=== PATIENT | female | born 1995 | race Caucasian/White ===

== ENCOUNTER 2017-06-09 12:43 | Emergency (ER) | payer BC, OTHER ==
[~2017-06-09] VITALS: Ht 157.5 cm; Wt 63.5 kg
[~2017-06-09 12:43] MED LIST: ALBUPOW26
[2017-06-09 12:49] VITALS: BP 115/73
[2017-06-09] MEDS ORDERED: BACITRACIN TOP OINT 1 UD PKG TOP ONE (13:15)
[2017-06-09] MEDS ORDERED: TETANUS-DIPTH-ACEL PERTUSSIS 0.5ML SYRG IM ONE (13:15)
== END 2017-06-09 14:00 | disposition home or self-care (01) ==
LOC: ER 12:43
DX: S92.912A Unspecified fracture of left toe(s), initial encounter for closed fracture (principal); Z88.0 Allergy status to penicillin; Z88.1 Allergy status to other antibiotic agents; Z23 Encounter for immunization; Z77.22 Contact with and (suspected) exposure to environmental tobacco smoke (acute) (chronic); W19.XXXA Unspecified fall, initial encounter; Y93.89 Activity, other specified; Y99.8 Other external cause status; Y92.89 Other specified places as the place of occurrence of the external cause
CPT/HCPCS: 73660; 90471; 90715

== ENCOUNTER 2017-07-10 12:54 | Emergency (ER) | payer BC ==
[~2017-07-10] VITALS: Ht 154.9 cm; Wt 61.2 kg
[2017-07-10 13:59] VITALS: BP 119/69
[2017-07-10] MEDS ORDERED: methylPREDNISolone SOD SUCC 125 MG/2 ML VL IM ONE (14:00)
[2017-07-10] MEDS ORDERED: diphenhdrAMINE HCL 50 MG/1 ML VL IM ONE (14:00)
== END 2017-07-10 14:08 | disposition home or self-care (01) ==
LOC: ER 13:14
DX: T63.2X1A Toxic effect of venom of scorpion, accidental (unintentional), initial encounter (principal); L53.0 Toxic erythema; K14.8 Other diseases of tongue; Z88.0 Allergy status to penicillin; Y92.000 Kitchen of unspecified non-institutional (private) residence as the place of occurrence of the external cause
CPT/HCPCS: 96372; 99284; J1200; J2930